=== PATIENT | male | born 1960 | race Caucasian/White ===

== ENCOUNTER 2019-11-09 14:18 | Emergency (ER) | payer OTHER, SELFPAY ==
--- NOTE | 2019-11-09 14:29 | ED.WOUNDLAC ---
HPI - Wound/Laceration General Chief Complaint: Wound/Laceration Stated Complaint: left forefinger cut Time Seen by Provider: 11/09/19 14:29 Source: patient and RN notes reviewed History of Present Illness HPI narrative: Patient is a 59-year-old male who presents the urgent care with complaints of a laceration to the left pinky finger. Patient states that he was replacing an air conditioning coil and when he went to slide it then, it popped out and he caught it, slicing his pinky finger. Patient states the incident occurred just prior to arrival. States his last tetanus shot was approximately 5 years ago. No other acute complaints or injuries. No acute distress noted. Patient read the plan of care. Related Data Home Medications Medication Instructions Recorded Confirmed atorvastatin 20 mg PO DAILY 11/09/19 11/09/19 clomiphene citrate 50 mg PO EVERY OTHER DAY 11/09/19 11/09/19 lisinopril 5 mg PO DAILY 11/09/19 11/09/19 metformin 2,000 mg PO DAILY 11/09/19 11/09/19 Allergies Allergy/AdvReac Type Severity Reaction Status Date / Time codeine AdvReac Nausea and Verified 11/09/19 14:39 Vomiting Review of Systems Review of Systems: Narrative: CONSTITUTIONAL: Denies fever, chills, or sweats. EYES: Denies visual changes, redness, or discharge. ENT: Denies rhinorrhea, congestion, sore throat, or otalgia. CARDIOVASCULAR: Denies chest pain, palpitations, or edema. RESPIRATORY: Denies cough or dyspnea. GASTROINTESTINAL: Denies abdominal pain, nausea, vomiting, or diarrhea. GENITOURINARY: Denies dysuria or hematuria. SKIN: Reports of a laceration to the fifth digit of the left hand MUSCULOSKELETAL: Denies back pain, joint pain, or myalgia. NEUROLOGIC: Denies headache, numbness, or weakness. All other systems reviewed are negative, except as documented in HPI. PMFSH Comments At the time of my signature, I reviewed and agree with the nursing past medical, surgical, social, and family history. There is no relevant family history pertinent to the patient complaint. Exam Narrative: Exam Narrative: GENERAL: This is a well-nourished, well-developed patient, in no apparent distress. HEAD: normocephalic, atraumatic. EYES: PERRL. Sclera clear/white. Vision is grossly intact. EARS: External ears normal NOSE: External nose normal with no obvious nasal discharge, nares without redness, no rhinorrhea. THROAT: Mucous membranes moist NECK: Neck supple SKIN: 2 cm linear laceration to the palmar digital aspect of the left fifth digit. Warm, intact with no suspicious lesions or rash, good texture and turgor. NEURO: awake, alert, and oriented to person, place and time. There were no obvious focal neurologic abnormalities. EXTREMITIES: No clubbing, cyanosis, or edema. Course Vital Signs Vital signs: Vital Signs Temperature 97.3 F L 11/09/19 14:30 Pulse Rate 88 11/09/19 14:30 Respiratory Rate 20 11/09/19 14:30 Blood Pressure 145/81 H 11/09/19 14:30 Pulse Oximetry 98 11/09/19 14:30 Temperature 97.3 F L 11/09/19 14:30 Pulse Rate 88 11/09/19 14:30 Respiratory Rate 20 11/09/19 14:30 Blood Pressure 145/81 H 11/09/19 14:30 Pulse Oximetry 98 11/09/19 14:30 Reviewed-patient is informed that they may have pre-hypertension or hypertension based on a blood pressure reading in the department. I recommend the patient call the primary care provider listed on their discharge instructions or a physician of their choice this week to arrange follow-up for further evaluation of possible pre-hypertension or hypertension. Procedures Laceration Laceration 1: Site: hand (Fifth digit) Side (If applicable): left Size (cm): 2 Description: linear Depth: simple, single layer Local Anesthetic: lidocaine 1% Amount of anesthesia used (mL): 1 Pre-repair: irrigated and irrigated extensively (Technique care normal saline) ====== Skin Level ====== Skin layer closed with: o
[2019-11-09 14:30] VITALS: BP 145/81; PULSE 88; RESP 20; TEMP 36.3; O2SAT 98
== END 2019-11-09 15:10 | disposition home or self-care (01) ==
PROVIDERS: Emergency Provider Nurse Practitioner Family
DX: S61.217A Laceration without foreign body of left little finger without damage to nail, initial encounter (principal); W45.8XXA Other foreign body or object entering through skin, initial encounter; E78.00 Pure hypercholesterolemia, unspecified; I10 Essential (primary) hypertension
CPT/HCPCS: 12001; 99213; G0463

== ENCOUNTER 2019-11-16 09:51 | Emergency (ER) | payer OTHER, SELFPAY ==
--- NOTE | 2019-11-16 09:55 | ED.GENADULT ---
HPI - General Adult General Chief complaint: Skin/Abscess/Foreign Body Stated complaint: check stiches Time Seen by Provider: 11/16/19 10:21 Source: patient Mode of arrival: ambulatory Limitations: no limitations History of Present Illness HPI narrative: 59-year-old male patient presents to the [facility] with request for sutures to be removed and to check the wound. Patient states about 7 days ago he had 3 sutures placed and his left pinky finger due to a laceration. Patient states he has about 2 more days of his antibiotics. Patient states he has been cleaning the wound with soap and water and keeping it bandaged. Patient denies any pain to the area. Denies any discharge from the wound and denies any redness or swelling. Related Data Home Medications Medication Instructions Recorded Confirmed atorvastatin 20 mg PO DAILY 11/09/19 11/09/19 clomiphene citrate 50 mg PO EVERY OTHER DAY 11/09/19 11/09/19 lisinopril 5 mg PO DAILY 11/09/19 11/09/19 metformin 2,000 mg PO DAILY 11/09/19 11/09/19 Allergies Allergy/AdvReac Type Severity Reaction Status Date / Time codeine AdvReac Nausea and Verified 11/16/19 10:15 Vomiting Review of Systems Review of Systems: Narrative: CONSTITUTIONAL: Denies fever, chills, or sweats. EYES: Denies visual changes, redness, or discharge. ENT: Denies rhinorrhea, congestion, sore throat, or otalgia. CARDIOVASCULAR: Denies chest pain, palpitations, or edema. RESPIRATORY: Denies cough or dyspnea. GASTROINTESTINAL: Denies abdominal pain, nausea, vomiting, or diarrhea. GENITOURINARY: Denies dysuria or hematuria. SKIN: Denies rash or itching. Positive wound with sutures intact to left pinky MUSCULOSKELETAL: Denies back pain, joint pain, or myalgia. NEUROLOGIC: Denies headache, numbness, or weakness. PSYCHIATRIC: Denies anxiety or depression. PMFSH Comments At the time of my signature I agree with nursing past medical history, surgical, social, and family history. There is no relevant family history pertinent to the presenting complaint. Exam Narrative: Exam Narrative: GENERAL: Well-appearing, well-nourished, and in no acute distress. HEAD: Normocephalic, atraumatic. EYES: PERRLA and EOMI. ENT: Nares clear, no rhinorrhea or epistaxis. Mucous membranes moist. NECK: Supple. No lymphadenopathy CHEST: Clear to auscultation. No respiratory distress. HEART: Regular rate and rhythm. No murmur heard. Normal peripheral pulses. ABDOMEN: Soft, nontender, nondistended, normal active bowel sounds. EXTREMITIES: Normal range of motion. No edema. SKIN: Warm, dry, no rash. Patient has 3 sutures intact to the base of the left pinky on the palm side. There is no erythema, swelling or discharge coming from the site. There is a small l gaping area to the middle of the wound that would most likely benefit from a Steri-Strip. NEURO: No focal deficits. Alert and oriented x3. Course Vital Signs Vital signs: Vital Signs Temperature 36.6 C 11/16/19 09:56 Pulse Rate 70 11/16/19 09:56 Respiratory Rate 11/16/19 09:56 Blood Pressure 133/73 11/16/19 09:56 Pulse Oximetry 98 11/16/19 09:56 Temperature 36.6 C 11/16/19 09:56 Pulse Rate 70 11/16/19 09:56 Respiratory Rate 11/16/19 09:56 Blood Pressure 133/73 11/16/19 09:56 Pulse Oximetry 98 11/16/19 09:56 Vital signs reviewed. Procedures Other Procedure Procedure 1: Other Procedure: Sutures were removed from left pinky finger on palm side at the base of the pinky with tweezers and scissors. 2 Steri-Strips were applied to the middle of the wound that was still slightly gaping. No discharge noted. Patient tolerated procedure well. Medical Decision Making Differential Diagnosis Differential Diagnosis: Differential diagnosis: Abscess, cellulitis, hidradenitis, laceration, puncture wound. Discussed with patient that we will go ahead and take out the sutures today for it does appear that the wound is healing well and
[2019-11-16 09:56] VITALS: BP 133/73; PULSE 70; RESP 16; TEMP 36.6; O2SAT 98
== END 2019-11-16 10:40 | disposition home or self-care (01) ==
PROVIDERS: Emergency Provider Nurse Practitioner Family; PCP Internal Medicine
DX: S61.217D Laceration without foreign body of left little finger without damage to nail, subsequent encounter (principal); X58.XXXD Exposure to other specified factors, subsequent encounter; E78.00 Pure hypercholesterolemia, unspecified; I10 Essential (primary) hypertension
CPT/HCPCS: 99212; G0463